=== PATIENT | female | born 1940 | race Caucasian/White ===

== ENCOUNTER 2018-01-31 22:52 | Outpatient (REF) | payer MEDICARE, SELFPAY ==
[2018-01-31 23:07] LABS: BUN 13 mg/dL (7-18); CREATININE 0.97 mg/dL (0.55-1.02); Calcium 9.2 mg/dL (8.5-10.1); Chloride 105 mmol/L (98-107); Estimated GFR 55.83 (mL/min/1.73m2); Glucose 79 mg/dL (70-100); Potassium 3.9 mmol/L (3.5-5.1); Sodium 138 mmol/L (136-145)
== END 2018-01-31 23:12 ==
LOC: NCHCN 22:52
PROVIDERS: PCP Internal Medicine; Visit Provider Internal Medicine
DX: R03.0 Elevated blood-pressure reading, without diagnosis of hypertension (principal)
CPT/HCPCS: 80048

== ENCOUNTER 2020-05-13 09:35 | Outpatient (REF) | payer MEDICARE, SELFPAY ==
[2020-05-13 22:25] LABS: Absolute Basophil Count 0.07 10^3/uL (0.0-0.2); Absolute Eosinophil Count 0.12 10^3/uL (0.0-0.7); Absolute Lymphocyte Count 1.67 10^3/uL (1.2-3.4); Absolute Monocyte Count 0.71 10^3/uL (0.1-0.8); Absolute Neutrophil Count 13.89 10^3/uL (1.2-6.7); Basophils % 0.4; Eosinophils % 0.7; HCT 32.4 % (36.0-46.0); HGB 10.1 g/dL (11.2-15.7); Immature Grans % 0.6; Lymphocytes % 10.1; MCH 29.5 pg (27.0-33.0); MCHC 31.2 % (32.0-36.0); MCV 94.7 fL (80-95); MPV 9.1 fL (8.0-11.0); Monocytes % 4.3; Neutrophils % 83.9; Nucleated RBC 0 %; Platelet Count 524 10^3/uL (130-400); RBC 3.42 10^6/uL (3.93-5.22); RDW 13.2 % (11.7-14.6); RDW-SD 45.7 fL; WBC 16.56 10^3/uL (4.4-10.8)
[2020-05-13 22:54] LABS: ALT 29 U/L (14-59); AST 23 U/L (15-37); Albumin 2.3 g/dL (3.4-5.0); Alkaline Phosphatase 110 U/L (46-116); BUN 12 mg/dL (7-18); Bilirubin, Total 0.1 mg/dL (0.2-1.0); CREATININE 0.82 mg/dL (0.55-1.02); Calcium 8.3 mg/dL (8.5-10.1); Chloride 106 mmol/L (98-107); Glucose 132 mg/dL (74-106); Potassium 3.6 mmol/L (3.5-5.1); Sodium 140 mmol/L (136-145); Total Protein 5.7 g/dL (6.4-8.2)
[2020-05-13 23:34] LABS: INR 7.3 (0.9-1.1)
[2020-05-13 23:36] LABS: Prothrombin Time 69.9 sec (9.3-11.0)
== END 2020-05-13 09:55 ==
LOC: LBN 09:35
PROVIDERS: PCP Internal Medicine; Visit Provider Family Medicine
DX: I69.354 Hemiplegia and hemiparesis following cerebral infarction affecting left non-dominant side (principal); I48.91 Unspecified atrial fibrillation; Z79.01 Long term (current) use of anticoagulants
CPT/HCPCS: 80053; 85025; 85610